=== PATIENT | female | born 1935 ===

== ENCOUNTER 2017-04-15 17:06 | Emergency (ER) | payer MEDICARE, OTHER ==
[2017-04-15 17:26] VITALS: BP 103/65
--- NOTE | 2017-04-15 18:15 | UC ---
Kayode Encinas Benjamin, scribed for Osito Hutchins MD on 04/15/17 at 1748 . General HPI - HPI Summary HPI Summary: 81yo female c/o fatigue, generalized body aches, LÓPEZ, weakness, and intermittent fever/chills and sore throat for 3 weeks. Pt also reports constant itchiness for 3 weeks and having red blotches in her groin area. Pt states some disorientation in the last 3 weeks as well. Pt came in today as her symptoms continued to persist. Denies nausea, abdominal pain, urinary symptoms, vomiting , runny nose, or cough. Hx of afib, CVA, and has a pace maker placed. Pt takes Coumadin. 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 Denies any kidney problems. Pt is from [place]. - History of Current Complaint Chief Complaint: UCGeneralIllness Stated Complaint: FEVER,JOINT PAIN Time Seen by Provider: 04/15/17 17:18 Hx Obtained From: Patient, Family/Metal Mover - daughter Onset/Duration: Gradual Onset, Lasting Weeks - 3 weeks, Still Present Onset Severity: Moderate Current Severity: Moderate Pain Intensity: 8 Associated Signs & Symptoms: Positive: Fever, Headache, Weakness. Negative: Abdominal Pain - Allergy/Home Medications Allergies/Adverse Reactions: Allergies Allergy/AdvReac Type Severity Reaction Status Date / Time No Known Allergies Allergy Verified 04/15/17 17:29 Home Medications: Home Medications Warfarin TAB(*) [Coumadin TAB(*)] 0.5 mg PO QPM 04/15/17 [History Confirmed ] Warfarin TAB(*) [Coumadin TAB(*)] 1.5 mg PO WEEKLY 04/15/17 [History Confirmed 04/15/17] PMH/Surg Hx/FS Hx/Imm Hx Cardiovascular History: Pacemaker/ICD, Atrial Fibrillation Neurological History: CVA Other History Of: Anticoagulant Therapy - coumadin - Surgical History Surgical History: Yes Surgery Procedure, Year, and Place: pacemaker - Family History Known Family History: Positive: Hypertension Negative: Cardiac Disease, Diabetes - Social History Occupation: Retired Lives: With Family Alcohol Use: None Substance Use Type: None Smoking Status (MU): Never Smoked Tobacco Review of Systems Constitutional: Fever, Chills, Fatigue Skin: Negative Eyes: Negative ENT: Sore Throat Respiratory: Negative Cardiovascular: Negative Gastrointestinal: Negative Genitourinary: Negative Motor: Weakness Neurovascular: Negative Musculoskeletal: Myalgia - body aches Neurological: Headache, Weakness Psychological: Negative All Other Systems Reviewed And Are Negative: Yes Physical Exam Triage Information Reviewed: Yes Appearance: No Pain Distress, Well-Nourished, Ill-Appearing - mildly Vital Signs: Initial Vital Signs Temp 98.4 F 04/15/17 17:19 Pulse 106 04/15/17 17:19 Resp 18 04/15/17 17:19 BP 103/65 04/15/17 17:19 Pulse Ox 97 04/15/17 17:19 Eyes: Positive: Conjunctiva Clear ENT: Positive: Normal ENT inspection, Hearing grossly normal Neck: Positive: Supple, Nontender Respiratory: Positive: Lungs clear, Normal breath sounds, No respiratory distress Cardiovascular: Positive: No Murmur, Tachycardia Abdomen Description: Positive: Nontender, Soft Bowel Sounds: Positive: Present Musculoskeletal: Positive: Strength Intact, ROM Intact, Edema @ - trace pedal edema. Negative: No Edema Neurological: Positive: Alert, Muscle Tone Normal Psychological: Positive: Age Appropriate Behavior Skin: Positive: Other - mild erythema on the waist band, blanching Course/Dx - Course Course Of Treatment: Reviewed pts medication and allergy lists. Blood pressure noted. PATIENT HAS A COMPLEX MEDICAL HISTORY. SHE HAS AN IRREGULAR TACHYCARDIC HEART RHYTHM WITH A LOW BLOOD PRESSURE AND COMPLAINS OF FEVER, WEAKNESS AND ITCHING. I DISCUSSED WITH THE PATIENT AND HER DAUGHTER HERE IN THE CLINIC WE WILL BE UNABLE TO CHECK BLOOD WORK AND ADEQUATELY EVALUATE HER HEART RHYTHM SAFELY. I RECOMMENED THEY SEEK FURTHER EVALUATION AND TREATMENT IN THE ED. THEY AGREED TO THIS PLAN. Discussed with Payton Robert (ED) at 17:55 for transfer via private car. - Differential Dx - Multi-Symptom Provider Diagnoses: WEAKNESS, FATIGUE, TACHYCARDIA, FEVER Discharge - Discharge Plan Condition: Stable Disposition: HOME Patient Education Materials: Fever in Adults (ED), Weakness (ED), Fatigue (ED) , Tachycardia (ED) Referrals: Tristen Ascencio MD [Primary Care Provider] - Additional Instructions: I RECOMMEND YOU GO DIRECTLY TO THE EMERGENCY DEPARTMENT FOR FURTHER EVALUATION OF YOU WEAKNESS, FATIGUE, FEVER AND TACHYCARDIA. The documentation as recorded by the Kayode magallon Benjamin accurately reflects the service I personally performed and the decisions made by me, Osito Hutchins MD.
== END 2017-04-15 18:00 | disposition home or self-care (01) ==
LOC: UCEAST 17:06
DX: R53.1 Weakness (principal); R53.83 Other fatigue; R50.9 Fever, unspecified; R00.0 Tachycardia, unspecified; I48.91 Unspecified atrial fibrillation; Z79.01 Long term (current) use of anticoagulants; Z95.0 Presence of cardiac pacemaker; Z86.73 Personal history of transient ischemic attack (TIA), and cerebral infarction without residual deficits
CPT/HCPCS: 99211; G0463

== ENCOUNTER 2017-04-15 18:21 | Emergency (ER) | payer MEDICARE, OTHER ==
--- NOTE | 2017-04-15 19:45 | ED ---
Complex/Multi-Sys Presentation - HPI Summary HPI Summary: Pt here w/ multiple symptoms over past 3.5 weeks. She has a pace maker and had this checked 1 month ago prior to coming to [place] from [place] where she resides - reports it was in good working order at that time. Her sx include intermittent fever, general body aches, intermittent/brief SOB w/o CP, LÓPEZ, intermittent ST, and overall not feeling well. She took tylenol prior to arrival (no fever at this time). Reports her appetite has been less since these sx have been present. Still eating and drinking though. Urination increased after she started drinking propel water as instructed by PCP as they suggested she may have flu/viral illness and this would prevent dehydration. This was suggested as she was around family who later told her they were "sick" (sx unknown). She takes furosemide for LE edema but no known CHF. 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 She was sent from today as there was concern for irregular heart rate. Pt denies h/o a. fib and reports her pacer is in place for the purpose of controlling bradycardia (she reports a HR in the 30's w/ fatigue prior to pacer placement). No giuseppe wilderness/tick exposure but this cannot be ruled out. No giuseppe rash of mention. - History Of Current Complaint Chief Complaint: EDFever Time Seen by Provider: 04/15/17 19:16 Hx Obtained From: Patient, Family/Fulfillment Mail Clerk - daughter - Allergies/Home Medications Allergies/Adverse Reactions: Allergies Allergy/AdvReac Type Severity Reaction Status Date / Time No Known Allergies Allergy Verified 04/15/17 18:23 PMH/Surg Hx/FS Hx/Imm Hx Previously Healthy: Yes Endocrine/Hematology History: Reports: Hx Anticoagulant Therapy - coumadin for CVA Denies: Hx Diabetes, Hx Thyroid Disease Cardiovascular History: Reports: Hx Pacemaker/ICD - for bradycardia Denies: Hx Atrial Fibrillation, Hx Congestive Heart Failure - pt does not believe she has this but takes furosemide for LE edema, Hx Hypercholesterolemia , Hx Hypertension Respiratory History: Denies: Hx Asthma, Hx Chronic Obstructive Pulmonary Disease (COPD), Hx Pulmonary Embolism GI History: Denies: Hx Ulcer Neurological History: 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 - Surgical History Surgery Procedure, Year, and Place: pacemaker Infectious Disease History: Denies: Hx Clostridium Difficile, Hx Hepatitis, Hx Human Immunodeficiency Virus (HIV), Hx of Known/Suspected MRSA, Hx Shingles, Hx Tuberculosis, Hx Known/ Suspected VRE, Hx Known/Suspected VRSA, History Other Infectious Disease, Traveled Outside the [place] in Last 30 Days - Family History Known Family History: Positive: Hypertension Negative: Cardiac Disease, Diabetes - Social History Occupation: Retired Lives: With Family Alcohol Use: Occasionally - couple of times a month Hx Substance Use: No Substance Use Type: Reports: Excessive Caffeine - drinks alot of tea Hx Tobacco Use: No Smoking Status (MU): Never Smoked Tobacco Review of Systems Constitutional: Other - see HPI Eyes: Negative Positive: Sore Throat - see HPI. Negative: Ear Ache, Nasal Discharge Cardiovascular: Other - see HPI Negative: Chest Pain Positive: Shortness Of Breath - see HPI. Negative: Cough Gastrointestinal: Other - reduced appetite as in HPI Negative: Abdominal Pain, Vomiting, Diarrhea, Nausea Positive: frequency - see HPI - may be direct correlation w/ increased fluid intake and taking diuretic. Negative: burning, dysuria, discharge, flank pain, hematuria, incontinence, pain, urgency Musculoskeletal: Other - see HPI Skin: Negative Negative: Rash Positive: Headache - see HPI. Negative: Weakness, Paresthesia, Numbness, Syncope, Slurred Speech Psychological: Normal All Other Systems Reviewed And Are Negative: Yes Physical Exam Triage Information Reviewed: Yes Vital Signs On Initial Exam: Initial Vitals Temp Pulse Resp BP Pulse Ox 98.4 F 85 16 109/57 96 04/15/17 18:24 04/15/17 18:24 04/15/17 18:24 04/15/17 18:24 04/15/17 18:24 Vital Signs Reviewed: Yes Appearance: Positive: Well-Appearing, No Pain Distress, Well-Nourished Skin: Positive: Warm, Dry - no EM rash observed - no rash or signs of infection otherwise - pacer appears structurally intact and w/o erythema/edema Head/Face: Positive: Normal Head/Face Inspection - NTTP Eyes: Positive: Normal, EOMI, BILLY, Conjunctiva Clear. Negative: Conjunctiva Inflammed, Discharge ENT: Positive: Normal ENT inspection, Hearing grossly normal, Pharynx normal, TMs normal. Negative: Nasal congestion, Nasal drainage, Tonsillar swelling, Tonsillar exudate Dental: Negative: Abscess @ Neck: Positive: Supple, Nontender, No Lymphadenopathy Respiratory/Lung Sounds: Positive: Clear to Auscultation, Breath Sounds Present. Negative: Rales, Rhonchi, Wheezes Cardiovascular: Positive: Leg Edema Left, Leg Edema Right - mild in B/L ankles and distal tibial regions - no pitting, Other - intermittent irregular beat, S1 , S2 Abdomen Description: Positive: Nontender, No Organomegaly, Soft Bowel Sounds: Positive: Present Musculoskeletal: Positive: Normal, Strength/ROM Intact - no joint edema or erythema Neurological: Positive: Normal, Sensory/Motor Intact, Alert, Oriented to Person Place, Time, CN Intact II-III, Facial Symmetry, Speech Normal Psychiatric: Positive: Normal - pleasant Diagnostics - Vital Signs Vital Signs Temp Pulse Resp BP Pulse Ox 04/15/17 18:24 98.4 F 85 16 109/57 96 - Laboratory Result Diagrams: 04/15/17 19:50 04/15/17 19:50 Lab Statement: Any lab studies that have been ordered have been reviewed, and results considered in the medical decision making process. Complex Multi-Symp Course/Dx Course Of Treatment: Pt presents w/ 3.5 week h/o intermittent fever, LÓPEZ, arthralgias, SOB w/o CP and not feeling well in general. Some days she feels fine. No known cause of sx. W/u here tonight indicates no acute pathology or life threatening conditions. Her labs are remarkable for low calcium 8.1, elevated alk phos 137 w/o GI sx and no ab tenderness, mildly depleted sodium 132 and elevated CRP 54.83. INR is not w/in therapeutic range at 1.65 (goal 2-3) . BNP 320 (no baseline for comparison - no crackles on auscultation, no fluid on CXR). Her WBC, lactic acid and TSH are WNL. Neg for mono, influenza and strep. She does not want to stay for her sx - prefers to go home and f/u w/ PCP. Explained Lyme still needs to be ruled out but w/o high clinical incidence , will not start doxycycline w/o results. She agrees to f/u w/ PCP this week. Reviewed danger s/sx of when to return to ED. Pt and family agree w/ plan. - Diagnoses Provider Diagnoses: Large joint arthralgia of multiple sites, General ill feeling - Physician Notifications Discussed Care Of Patient With: Wilson Fonseca Discharge - Discharge Plan Condition: Stable Disposition: HOME Patient Education Materials: Hypocalcemia (ED), Fatigue (ED) Referrals: Tristen Ascencio MD [Primary Care Provider] - Additional Instructions: The root cause of your fevers, pains and headaches were not definitively identified tonight. Life threatening conditions were ruled out. Your Lyme test is pending - please follow-up with PCP this week to review these results. Call tomorrow morning to schedule a follow-up appointment for this week. Your calcium is low and alkaline phosphate is high - this could indicate a more serious pathology. Advise follow-up with your PCP this week. Also noted was INR was not therapeutic. Please review with PCP. *If you develop fever > 103F and intractable despite taking tylenol and/or advil , you have a severe headache, change in vision, neck pain, vomiting, chest pain or shortness of breath, return to ED
[2017-04-15 20:02] LABS: Hematocrit 33 % (35-47); Hemoglobin 10.8 g/dl (12.0-16.0); Mean Corpuscular HGB Conc 33 g/dl (31-36); Mean Corpuscular Hemoglobin 32 pg (27-31); Mean Corpuscular Volume 96 fL (80-97); Mean Platelet Volume 7 um3 (7.4-10.4); Red Blood Count 3.39 10^6/ul (4.0-5.4); Red Cell Distribution Width 15 % (10.5-15)
--- NOTE | 2017-04-15 20:09 | RAD ---
INDICATION: Intermittent fever, myalgias and shortness of breath. COMPARISON: There are no prior studies available for comparison. TECHNIQUE: Dual-energy PA and lateral views of the chest were obtained. FINDINGS: The heart is mildly enlarged. There is a dual-chamber transvenous cardiac pacemaker present. There is increased density in the right cardiophrenic angle. This is a nonspecific finding and may represent a prominent pericardial fat pad. The lungs are hyperinflated and clear. No pleural effusion is seen. IMPRESSION: FINDINGS CONSISTENT WITH COPD, NO EVIDENCE FOR ACUTE FINDING.
[2017-04-15 20:16] LABS: BUN/Creatinine Ratio 37.9 (8-20); C Reactive Protein 54.83 mg/L (< 5.00); Calcium 8.1 mg/dL (8.6-10.3); EGFR Non-African American 100.3 (>60); Globulin 3.5 g/dL (2-4); Magnesium 2.1 mg/dL (1.9-2.7); Potassium 3.8 mmol/L (3.5-5.0); Total Bilirubin 0.5 mg/dL (0.2-1.0); Total Protein 6.5 g/dL (6.4-8.9)
[2017-04-15 20:22] LABS: Mono Internal Control QC Line Present
[2017-04-15 20:39] LABS: TSH (Thyroid Stimulating Horm) 1.21 mcIU/mL (0.34-5.60)
[2017-04-15 22:14] VITALS: BP 98/70
[2017-04-17 16:55] LABS: Lyme Disease IgG Ab WB Negative (Negative)
== END 2017-04-15 22:14 | disposition home or self-care (01) ==
LOC: ED 18:21
DX: M25.50 Pain in unspecified joint (principal); R60.0 Localized edema; M79.1 Myalgia; R06.02 Shortness of breath; R07.9 Chest pain, unspecified; R51 Headache; J02.9 Acute pharyngitis, unspecified; Z86.73 Personal history of transient ischemic attack (TIA), and cerebral infarction without residual deficits; Z79.01 Long term (current) use of anticoagulants; Z95.0 Presence of cardiac pacemaker
CPT/HCPCS: 36415; 71020; 80053; 83605; 83735; 83880; 84443; 84484; 85025; 85610; 85730; 86140; 86308; 86617; 87040; 87502; 87651; 93005; 99283